=== PATIENT | male | born 1965 | race Asian ===

== ENCOUNTER 2016-12-19 10:42 | Emergency (ER) | payer OTHER ==
--- NOTE | 2016-12-19 11:11 | EDPHY ---
H & P Stated Complaint: Diarrhea since yesterday with "blood" and abdo pain. Time Seen by Provider: 12/19/16 11:10 HPI/ROS: HPI: This is a 51-year-old male who presents with Chief Complaint: Diarrhea since yesterday with "blood" and abdo pain. Location: GI Quality: Blood in stool Duration: 2 days Signs and Symptoms: no fever, no nausea, no vomiting, no hematemesis, + blood in stool, no abdominal bloating, + diarrhea, no back pain, no urinary symptoms, no testicular/groin pain, no indigestion, no chest pain, no shortness of breath , + dull frontal headache, no weight loss Timing: Sudden, intermittent episodes Severity: Moderate Context: Patient reports that he is generally healthy and does not take any regular medications. He complains of sudden onset of loose stool containing blood starting yesterday occurring approximately 20 times over the last 2 days. His appetite has been the same and he has had no difficulty eating or drinking. He also complains of sharp moderate nonradiating left lower quadrant pain in a dull frontal headache. He has never had a colonoscopy. Denies taking NSAIDs/recent antibiotic use/traveling outside of the country/alcohol use. He has tried nothing for the symptoms. He denies any hemorrhoids. Modifying Factors: None Comment: ROS: see HPI Constitutional: No fever, no chills, no weight loss Eyes: No blurred vision Respiratory: No shortness of breath, no cough Cardiovascular: No chest pain, no palpitations Gastrointestinal: No nausea, no vomiting, no diarrhea, no hematemesis, no blood in stool Genitourinary: No dysuria, no blood in urine Extremities: No myalgias, no edema Neurologic: No weakness, no numbness Skin: No rashes, no petechiae Hematologic: No bruising, no bleeding MEDICAL/SURGICAL/SOCIAL HISTORY: Medical history: Generally healthy. Does not take any regular medications. Surgical history: Denies Social history: CONSTITUTIONAL: Well-developed well-nourished adult male, awake and alert, no obvious distress HEENT: Atraumatic and normocephalic, PERRL, EOMI. Tympanic membranes clear. Oropharynx clear, no exudate and moist pink mucosa. Airway patent. No lymphadenopathy. No meningismus. Cardiovascular: Normal S1/S2, tachycardia, regular rhythm, without murmur rub or gallop. PULMONARY/CHEST: Symmetrical and nontender. Clear to auscultation bilaterally. Good air movement. No accessory muscle usage. ABDOMEN: Soft, nondistended, LLQ moderate tenderness, no rebound, no guarding, no peritoneal signs, no masses or organomegaly. No CVAT. Hyperactive bowel sounds RECTAL: Good sphincter tone, light brown stool in vault, no external hemorrhoids , no fissures, no palpable masses, guaiac positive EXTREMITIES: 2/2 pulses, no deformities, no clubbing, no cyanosis or edema. NEUROLOGICAL: no focal neuro deficits. GCS 15. SKIN: Warm and dry, no erythema. no rash. Good capillary refill. Source: Patient Exam Limitations: No limitations - Personal History Current Tetanus Diphtheria and Acellular Pertussis (TDAP): Yes - Medical/Surgical History Hx Asthma: No Hx Chronic Respiratory Disease: No Hx Diabetes: No Hx Cardiac Disease: No Hx Renal Disease: No Hx Cirrhosis: No Hx Alcoholism: No Hx HIV/AIDS: No Hx Splenectomy or Spleen Trauma: No Other PMH: Denies. - Social History Smoking Status: Never smoked Constitutional: Initial Vital Signs Temperature (C) 36.4 C 12/19/16 10:44 Heart Rate 107 H 12/19/16 10:44 Respiratory Rate 18 12/19/16 10:44 Blood Pressure 146/93 H 12/19/16 10:44 O2 Sat (%) 96 12/19/16 10:44 O2 Delivery Mode Room Air Allergies/Adverse Reactions: No Known Allergies Allergy (Unverified 12/19/16 10:48) Home Medications: Medication Instructions Recorded NK [No Known Home Meds] 12/19/16 Medical Decision Making - Diagnostics Imaging Results: Imaging Impressions Abdomen CT 12/19/16 11:16 Impression: 1. Diffuse colonic thickening with pericolonic stranding, compatible with colitis, with loss of haustration in the rectosigmoid colon suggestive of chronic inflammation, such as ulcerative colitis. 2. Hypodensity in the pancreas, too small to characterize, of doubtful clinical significance. MR abdomen with contrast could be performed in one year for follow up. 3. Bladder wall thickening, which could be related to underdistention, inflammation, or infection. 4. Additional findings as above. Findings discussed with Haley Veliz PA-C, 12/19/2016, at 1255 hours. ED Course/Re-evaluation: Labs, urinalysis, IV fluids, CT abdomen and pelvis scan, stool studies ordered Vital signs reviewed and mildly tachycardic. Given 2 L normal saline Afebrile without leukocytosis; doubt infectious etiology Guaiac positive 1230: Labs reviewed; sodium noted to be 125, BUN and creatinine high normal- unsure of baseline, no leukocytosis but bandemia. 1305: Called by radiologist and CT scan shows moderate colitis and ? undiagnosed ulcerative colitis. Given IV Cipro and IV Flagyl. 1315: ED decision to consult for admission, spoke with hospitalist, Kenzie, who advised that Dr. Fermin will accept patient to med surg and provide further care Differential Diagnosis: Lower GI bleeding including but not limited to diverticulosis, tumor, AVM, hemorrhoid and anal fissure. - Data Points Laboratory Results: Laboratory Results 12/19/16 11:30 12/19/16 11:30 12/19/16 12/19/16 12/19/16 11:30 11:30 11:30 WBC 6.15 10^3/uL 10^3/uL (3.80-9.50) RBC 4.97 10^6/uL 10^6/uL (4.40-6.38) Hgb 16.0 g/dL g/dL (13.7-17.5) Hct 43.8 % % (40.0-51.0) MCV 88.1 fL fL (81.5-99.8) MCH 32.2 pg pg (27.9-34.1) MCHC 36.5 g/dL g/dL (32.4-36.7) RDW 11.9 % % (11.5-15.2) Plt Count 194 10^3/uL 10^3/uL (150-400) MPV 11.3 fL fL (8.7-11.7) Neut % (Auto) 86.8 % H % (39.3-74.2) Lymph % (Auto) 7.5 % L % (15.0-45.0) Archuleta % (Auto) 4.9 % % (4.5-13.0) Eos % (Auto) 0.0 % L % (0.6-7.6) Baso % (Auto) 0.5 % % (0.3-1.7) Nucleat RBC Rel Count 0.0 % % (0.0-0.2) Absolute Neuts (auto) 5.34 10^3/uL 10^3/uL (1.70-6.50) Absolute Lymphs (auto) 0.46 10^3/uL L 10^3/uL (1.00-3.00) Absolute Monos (auto) 0.30 10^3/uL 10^3/uL (0.30-0.80) Absolute Eos (auto) 0.00 10^3/uL L 10^3/uL (0.03-0.40) Absolute Basos (auto) 0.03 10^3/uL 10^3/uL (0.02-0.10) Absolute Nucleated RBC 0.00 10^3/uL 10^3/uL (0-0.01) Immature Gran % 0.3 % % (0.0-1.1) Seg Neutrophils % 30 % % Band Neutrophils % 49 % % Lymphocytes % 8 % % Monocytes % 4 % % Metamyelocytes % 9 % % Immature Gran # 0.02 10^3/uL 10^3/uL (0.00-0.10) Absolute Seg Neuts 1.85 10^/uL 10^/uL (1.70-6.50) Absolute Band Neuts 3.01 10^3/uL H 10^3/uL (0.00-0.70) Absolute Lymphocytes 0.49 10^3/uL L 10^3/uL (1.00-3.00) Absolute Monocytes 0.25 10^3/uL L 10^3/uL (0.30-0.80) Absolute Metamyelocyte 0.55 10^3/mL H 10^3/mL (0.00-0.00) RBC/WBC/PLT Morphology NORMAL (NORMAL) Platelet Estimate ADEQUATE (ADEQ) PT 14.4 SEC SEC (12.0-15.0) INR 1.13 (0.83-1.16) APTT 32.2 SEC SEC (23.0-38.0) Sodium 125 mEq/L L mEq/L (134-144) Potassium 4.3 mEq/L mEq/L (3.5-5.2) Chloride 88 mEq/L L mEq/L (97-110) Carbon Dioxide 20 mEq/l L mEq/l (22-31) Anion Gap 17 mEq/L H mEq/L (8-16) BUN 28 mg/dL H mg/dL (7-23) Creatinine 1.4 mg/dL H mg/dL (0.7-1.3) Estimated GFR 53 Glucose 168 mg/dL H mg/dL (70-100) Calcium 9.9 mg/dL mg/dL (8.5-10.4) Total Bilirubin 1.0 mg/dL mg/dL (0.1-1.4) Conjugated Bilirubin 0.5 mg/dL mg/dL (0.0-0.5) Unconjugated Bilirubin 0.5 mg/dL mg/dL (0.0-1.1) AST 52 IU/L IU/L (17-59) ALT 63 IU/L IU/L (21-72) Alkaline Phosphatase 52 IU/L IU/L (38-126) Total Protein 8.6 g/dL H g/dL (6.3-8.2) Albumin 4.3 g/dL g/dL (3.5-5.0) Lipase 43 IU/L IU/L (23-300) Stool Occult Bld Scrn C. difficile Tox (PCR) 12/19/16 11:15 WBC RBC Hgb Hct MCV MCH MCHC RDW Plt Count MPV Neut % (Auto) Lymph % (Auto) Archuleta % (Auto) Eos % (Auto) Baso % (Auto) Nucleat RBC Rel Count Absolute Neuts (auto) Absolute Lymphs (auto) Absolute Monos (auto) Absolute Eos (auto) Absolute Basos (auto) Absolute Nucleated RBC Immature Gran % Seg Neutrophils % Band Neutrophils % Lymphocytes % Monocytes % Metamyelocytes % Immature Gran # Absolute Seg Neuts Absolute Band Neuts Absolute Lymphocytes Absolute Monocytes Absolute Metamyelocyte RBC/WBC/PLT Morphology Platelet Estimate PT INR APTT Sodium Potassium Chloride Carbon Dioxide Anion Gap BUN Creatinine Estimated GFR Glucose Calcium Total Bilirubin Conjugated Bilirubin Unconjugated Bilirubin AST ALT Alkaline Phosphatase Total Protein Albumin Lipase Stool Occult Bld Scrn POSITIVE H (NEGATIVE) C. difficile Tox (PCR) TNP Medications Given: Discontinued Medications Sodium Chloride (Ns) 1,000 mls @ 0 mls/hr IV EDNOW ONE; Wide Open PRN Reason: Protocol Stop: 12/19/16 11:17 Last Admin: 12/19/16 11:37 Dose: 1,000 mls Departure - Departure Disposition: [facility] Acute Clinical Impression: Hyponatremia, Colitis
[2016-12-19 11:23] LABS: OCCULT BLOOD FECES POSITIVE (NEGATIVE)
[2016-12-19] MEDS: NS 1,000 ML IV ONE ×2 (11:37→13:31)
[2016-12-19 11:42] LABS: % IMMATURE GRANULYOCYTES 0.3 % (0.0-1.1); ABSOLUTE IMMATURE GRANULOCYTES 0.02 10^3/uL (0.00-0.10); ADD DIFF? NO; ADD MORPH? NO; ADD SCAN? YES; ATYPICAL LYMPHOCYTE FLAG 0 (0-99); FRAGMENT RBC FLAG 0 (0-99); HEMATOCRIT 43.8 % (40.0-51.0); LIPEMIA HEMOLYSIS FLAG 90 (0-99); MEAN CELL HEMOGLOBIN 32.2 pg (27.9-34.1); MEAN CELL HEMOGLOBIN CONCENTR. 36.5 g/dL (32.4-36.7); MEAN CELL VOLUME 88.1 fL (81.5-99.8); MEAN PLATELET VOLUME 11.3 fL (8.7-11.7); PLATELET CLUMPS FLAG 10 (0-99); PLATELET COUNT 194 10^3/uL (150-400); RED BLOOD CELL COUNT 4.97 10^6/uL (4.40-6.38); RED CELL DISTRIBUTION WIDTH 11.9 % (11.5-15.2)
[2016-12-19 11:48] LABS: LEFT SHIFT FLG 300 (0-99)
[2016-12-19 11:52] LABS: ALANINE AMINOTRANSFERASE 63 IU/L (21-72); ALBUMIN 4.3 g/dL (3.5-5.0); ALKALINE PHOSPHATASE 52 IU/L (38-126); ANION GAP 17 mEq/L (8-16); ASPARTATE AMINOTRANSFERASE 52 IU/L (17-59); BILIRUBIN-CONJUGATED 0.5 mg/dL (0.0-0.5); BILIRUBIN-UNCONJUGATED 0.5 mg/dL (0.0-1.1); CALCIUM 9.9 mg/dL (8.5-10.4); CARBON DIOXIDE 20 mEq/l (22-31); CHLORIDE 88 mEq/L (97-110); CREATININE 1.4 mg/dL (0.7-1.3); GLOMERULAR FILTRATION RATE 53; GLUCOSE 168 mg/dL (70-100); POTASSIUM 4.3 mEq/L (3.5-5.2); SODIUM 125 mEq/L (134-144); TOTAL PROTEIN 8.6 g/dL (6.3-8.2)
[2016-12-19 11:58] LABS: APTT 32.2 SEC (23.0-38.0); INR 1.13 (0.83-1.16); PROTIME(PATIENT) 14.4 SEC (12.0-15.0)
[2016-12-19 12:12] LABS: SCAN POSITIVE
[2016-12-19] MEDS ORDERED: IOPAMIDOL (ISOVUE-300) 100 ML BTL ONE (12:14)
[2016-12-19 12:30] LABS: PLATELET ESTIMATE ADEQUATE (ADEQ)
[2016-12-19] MEDS ORDERED: CIPROFLOXACIN 400 MG/DEXTROSE 200 ML IV ONE (13:12)
[2016-12-19] MEDS ORDERED: NS 1,000 ML IV ONE (13:18)
[2016-12-19] MEDS ORDERED: HYDROCODONE/APAP 5/325 TAB PO PRN (13:30)
[2016-12-19] MEDS ORDERED: ACETAMINOPHEN 325 MG TAB PO PRN (13:30)
[2016-12-19] MEDS ORDERED: NS 1,000 ML IV SCH (13:30)
[2016-12-19] MEDS ORDERED: ONDANSETRON DISINTEGRATING 4 MG TAB PO PRN (13:30)
[2016-12-19] MEDS ORDERED: ONDANSETRON 4 MG/2 ML VIAL IVP PRN (13:30)
[2016-12-19 14:04] VITALS: RESP 16
[2016-12-19 15:41] LABS: ANION GAP 15 mEq/L (8-16); CALCIUM 8.2 mg/dL (8.5-10.4); CARBON DIOXIDE 19 mEq/l (22-31); CHLORIDE 95 mEq/L (97-110); CREATININE 1.1 mg/dL (0.7-1.3); GLOMERULAR FILTRATION RATE > 60; GLUCOSE 157 mg/dL (70-100); SODIUM 129 mEq/L (134-144)
--- NOTE | 2016-12-19 16:10 | GHP ---
[f rep st] HISTORY AND PHYSICAL DATE OF ADMISSION: 12/19/2016 CHIEF COMPLAINT: Bloody diarrhea and abdominal pain. HISTORY OF PRESENT ILLNESS: A 51-year-old male with no significant past medical history, who present s with sudden onset of diffuse abdominal cramping and pain the morning of presentation. The patient developed then a large volume watery stool with bright red blood. That prompted his presenting to [facility] emergency department. The patient denies any known sick contacts, any unusual foods. Denies any p revious history of diarrhea or blood in his stools. The patient denies any chest pain, shortness of breath, vision changes. Denies rashes, lower extremity edema, myalgias, arthralgias or dysuria. The patient was tolerating a normal diet overnight without nausea or vomiting. Denies active nausea dur ing our evaluation in the ED. Reports some appetite and reports that he believes his fluid intake al so has been adequate. PAST MEDICAL HISTORY: None. SOCIAL HISTORY: Negative for tobacco. Occasional alcohol. No illicit drugs or marijuana. FAMILY HISTORY: Negative for heart disease, lung disease or inflammatory bowel disease. REVIEW OF SYSTEMS: A 10-point review of systems is negative with the exception of that reported in t he HPI. PHYSICAL EXAMINATION: VITAL SIGNS: Blood pressure 128/80, heart rate 107, respiratory rate 18, satu rating 96% on room air, temperature 36.4 GENERAL: This is a healthy-appearing, middle-aged male in no acute distress. HEENT: Notable for dry mucous membranes. Eye exam is negative for any icterus. CARDIAC: Patient is tachycardic but regular. PULMONARY: Good respiratory effort. Clear to auscult ation bilaterally. GASTROINTESTINAL: Positive bowel sounds. Abdomen is soft. The patient has diff use pain worse in the left lower quadrant. No rebound or guarding. MUSCULOSKELETAL: Negative for a ny lower extremity edema. SKIN: Negative for any rashes. NEUROLOGIC: Patient is alert and oriente d x3. PSYCHIATRIC: He is pleasant and cooperative on interview and examination. DATA: White count is 6.15, hematocrit 43.8, platelets of 194. Sodium 125, creatinine 1.4, baseline unknown. Hemoccult positive. BUN of 28, anion gap is 17. Bicarb 20. PCR is negative for C diff, po sitive for salmonella. IMAGING: CT of the abdomen, which I personally reviewed and interpreted, shows pancolitis with loss of haustra per Radiology in the rectosigmoid area. ASSESSMENT AND PLAN: 1. Acute xie colitis secondary to salmonella. The patient does not seem toxic on examination, with t he exception of tachycardia, vital signs are normal. Will fluid resuscitate and recheck his labs. P atient should be dischargeable without antibiotic intervention or more diagnostics. The patient to caprice stonerw in the outpatient setting with his primary care provider. 2. Hypovolemic hyponatremia. Suspect secondary to the patient's diarrhea prior to presentation. Wi ll fluid resuscitate and recheck. 3. Anion gap metabolic acidosis secondary to dehydration. Again, will recheck a basic metabolic xie el after normal saline resuscitation. 4. Acute kidney injury. Creatinine is 1.4, baseline unknown, but no history of chronic kidney disea se. Again, will recheck after fluids. 5. Prophylaxis. Patient is ambulating. 6. Diet. As he can tolerate. DISPOSITION: I expect in less than 2 midnights. If the patient's laboratories improve after fluid r esuscitation, he wishes to return home to his young daughter. I have discussed the case with Dr. Yrn bolivar from Gastroenterology as well as the emergency room physician. Patient will only need supportive care. /[id number]/MODL
--- NOTE | 2016-12-19 16:25 | GDS ---
[f rep st] DISCHARGE SUMMARY DISCHARGE DIAGNOSES: Acute colitis secondary to salmonella. HISTORY OF PRESENT ILLNESS: A 51-year-old male with no past medical history, presents with acute blo charis stools. For details of patient's initial presentation, please see the History and Physical dated 12/19/2016. CONSULTANTS: None. PROCEDURES: On 12/19, the patient had a CT of the abdomen that showed pancolitis with marked inflamm ation of the rectosigmoid area. HOSPITAL COURSE: By issue: 1. Acute colitis secondary to salmonella. This was confirmed on PCR GI tract testing. The patient does not have a white count or fever, and appears nontoxic. He will be discharged today without anti biotics. Instructed to follow at his primary care physician's office in the next 1-2 weeks for post disposition followup. 2. Hypovolemic hyponatremia. Patient's sodium improved from 125 to 129 with 2 L of normal saline. He will be instructed to continue good fluid and solute intake upon returning home. 3. Acute kidney injury. Patient's creatinine improved from 1.4 to 1.1 after 2 L of fluids. Again, he will follow in the outpatient setting with Primary Care for lab recheck post disposition. 4. Anion gap metabolic acidosis. This resolved with fluid resuscitation, presume it will continue t o normalize with improved oral intake. MEDICATIONS: At the time of disposition: Please reference med rec printed on 12/19/2016. Of note, patient is being discharged on no medications. FOLLOWUP: With his primary care in the next 1-2 weeks, with expected resolution of his symptoms in t he next 4-7 days. PENDING STUDIES: At the time of this dictation, are none. /[id number]/MODL
[2016-12-19 16:49] VITALS: BP 130/70; PULSE 85; TEMP 98.6; O2SAT 98
== END 2016-12-19 16:49 | disposition home or self-care (01) ==
LOC: UNDOADMIN 13:20
DX: A02.0 Salmonella enteritis (principal); E87.1 Hypo-osmolality and hyponatremia; N17.9 Acute kidney failure, unspecified
CPT/HCPCS: J0744; Q9967